=== PATIENT | male | born 1975 | race Two or more races ===

== ENCOUNTER 2024-06-12 10:09 | Outpatient (CLI) | payer OTHER ==
[2024-06-12 11:05] LABS: PH,URINE 5.5 (5.0-8.0); URINE APPEARANCE Clear; URINE BILIRRUBIN Negative (NEGATIVE); URINE BLOOD Negative; URINE COLOR Yellow; URINE GLUCOSE Negative (NEGATIVE); URINE KETONE Negative (NEGATIVE); URINE LEUKOCYTE Negative; URINE NITRATE Negative; URINE PROTEIN Negative (NEGATIVE); URINE UROBILINOGEN 0.2 E.U./dl
[2024-06-12 11:06] LABS: URINE BACTERIA 7.3 uL (0.0-1933); URINE RBC 5.4 uL (0.0-20.8); URINE WBC 5.3 uL (0.0-23.2)
[2024-06-12 11:08] LABS: URINE CAST 0.14 uL (0.0-1.40); URINE EPITHELIAL CELLS 1.1 uL (0.0-38.8)
[2024-06-12 11:12] LABS: HEMOGLOBIN 15.2 g/dL (13-16.00); MEAN CELL VOLUME 94.1 fL (80.0-100.00); MEAN CORPUSCULAR HEMOGLOBIN 31.8 pg (27.00-32.0); MEAN CORPUSCULAR HGB CONC 33.8 g/dl (32.0-36.0); PLATELET COUNT 271 K/uL (150-450); RED BLOOD COUNT 4.78 M/uL (4.00-6.00); RED CELL DISTRIBUTION WIDTH 14.1 % (11.5-14.5)
[2024-06-12 11:43] LABS: BILIRUBIN TOTAL 0.4 mg/dL (0.3-1.2); CALCIUM 9.2 mg/dL (8.5-10.1); CHOL HDL RATIO 3.7 (0-5.0); CREATININE SERUM 1.15 mg/dL (0.70-1.30); GFR 67.59; GLOBULINA 3.5 G/DL (2.4-3.5); POTASSIUM 4.9 mEq/L (3.5-5.1); PROSTATIC SPECIFIC ANTIGEN 1.99 NG/ML (0.010-4.00); TOTAL PROTEIN 7.5 gm/dL (6.4-8.2); TSH 2.83 uIU/mL (0.358-3.74)
== END 2024-06-12 10:19 | disposition home or self-care (01) ==
LOC: LAB 10:09
DX: E55.9 Vitamin D deficiency, unspecified (principal); E66.9 Obesity, unspecified; D64.9 Anemia, unspecified; R73.01 Impaired fasting glucose; E78.00 Pure hypercholesterolemia, unspecified; E03.9 Hypothyroidism, unspecified; N39.0 Urinary tract infection, site not specified; Z12.11 Encounter for screening for malignant neoplasm of colon; N40.0 Benign prostatic hyperplasia without lower urinary tract symptoms